=== PATIENT | male | born 2000 | race Caucasian/White ===

== ENCOUNTER 2023-08-20 15:41 | Emergency (ER) | payer OTHER, SELFPAY ==
[2023-08-20 15:50] VITALS: BP 129/76; PULSE 100; RESP 14; TEMP 36.6; O2SAT 100
--- NOTE | 2023-08-20 17:29 | ED.GENADULT ---
HPI - General Adult General Chief complaint: Skin/Abscess/Foreign Body Stated complaint: toe infection Time Seen by Provider: 08/20/23 17:04 Source: patient Mode of arrival: ambulatory Limitations: no limitations History of Present Illness HPI narrative: This is a 23-year-old male who presents to the ED for chief complaint of left great toe pain for the past week. Patient reports that he noticed this week he some skin growing over the toenail and over the past several days it is become more red, swollen and painful. Reports remote history of injuries to the toe but nothing recent. Reports some drainage from the nail. 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 States he has to walk on the side of his foot.. Denies fevers, chills, nausea, vomiting, numbness, weakness Related Data Allergies Allergy/AdvReac Type Severity Reaction Status Date / Time No Known Allergies Allergy Verified 08/20/23 17:24 Review of Systems Review of Systems: All systems as dictated in HPI Exam Narrative: GENERAL: Well-appearing, well-nourished, and in no acute distress. HEAD: Normocephalic, atraumatic. EYES: PERRLA and EOMI. ENT: Nares clear, no rhinorrhea or epistaxis. Mucous membranes moist. Oropharynx without tonsillar hypertrophy exudate or other lesions. NECK: Supple. No adenopathy or masses. CHEST: No respiratory distress. Clear to auscultation. No wheezes rales or rhonchi HEART: Regular rate and rhythm. No murmur heard. Normal peripheral pulses. ABDOMEN: Soft, nontender, nondistended, normal active bowel sounds. MSK: Normal range of motion. No edema. SKIN: Erythema, swelling to the left great toe distally. Cap refill intact. Moderate tenderness. Slight drainage from the nail fold. NEURO: Alert and oriented x3. No focal deficits. PSYCH: Normal mood and affect. Course Vital Signs Vital signs: Vital Signs Temperature 97.9 F 08/20/23 15:50 Pulse Rate 100 08/20/23 15:50 Respiratory Rate 14 08/20/23 15:50 Blood Pressure 129/76 08/20/23 15:50 Pulse Oximetry 100 08/20/23 15:50 Oxygen Delivery Room Air 08/20/23 15:50 Temperature 97.9 F 08/20/23 15:50 Pulse Rate 100 08/20/23 15:50 Respiratory Rate 14 08/20/23 15:50 Blood Pressure 129/76 08/20/23 15:50 Pulse Oximetry 100 08/20/23 15:50 Oxygen Delivery Room Air 08/20/23 15:50 Medical Decision Making MDM Narrative Medical decision making narrative: This is a 23 year old male who presents to the ED with chief complaint of left great toe pain and swelling for the past week. Vitals are normal. Exam shows mild erythema and swelling to the distal left great toe. There is some prelim drainage from the nail fold. Exam consistent with ingrown toenail and potential paronychia. Was able to gently express the fluid after lightly the layers with a 18 gauge needle. Patient will be discharged in stable condition. He has a podiatry appointment set up. Antibiotics given. Pt will be discharged in stable condition. Return precautions given and supportive measures discussed. Pt is understanding and agreeable with plan for discharge and follow-up with PCP/podiatry Vital Signs Vital Signs: Vital Signs Temperature 97.9 F 08/20/23 15:50 Pulse Rate 100 08/20/23 15:50 Respiratory Rate 14 08/20/23 15:50 Blood Pressure 129/76 08/20/23 15:50 Pulse Oximetry 100 08/20/23 15:50 Oxygen Delivery Room Air 08/20/23 15:50 Temperature 97.9 F 08/20/23 15:50 Pulse Rate 100 08/20/23 15:50 Respiratory Rate 14 08/20/23 15:50 Blood Pressure 129/76 08/20/23 15:50 Pulse Oximetry 100 08/20/23 15:50 Oxygen Delivery Room Air 08/20/23 15:50 Discharge Plan Discharge Clinical Impression: Pain of left great toe Patient Disposition: Home, Self-Care Condition: Stable Instructions: Antibiotic Form Additional Instructions: Your exam today shows evidence of possible infected
== END 2023-08-20 18:12 | disposition home or self-care (01) ==
PROVIDERS: Emergency Provider Physician Assistant
DX: M79.675 Pain in left toe(s) (principal)
CPT/HCPCS: 99283

== ENCOUNTER 2024-01-29 12:21 | Emergency (ER) | payer OTHER, SELFPAY ==
--- NOTE | ~2024-01-29 | CT_ITS ---
CT diagnostic chest w con Ordering provider: Hubert Farley MD History: 23 years Male with . Pneumonia, AV malformation . Comparison: None. Technique: CT chest with IV contrast. Radiation reduction technique utilized. The dose-length product was 154.94 mGy-cm. 75 mL Omnipaque 350 was given IV. Findings: VISUALIZED THORACIC INLET: Normal. MEDIASTINUM: Aorta/coronary arteries: Normal aorta. Heart/other: The heart is not enlarged. Lymph nodes: No mediastinal adenopathy. Small right hilar lymph nodes measuring 1.1 and 1.1 cm. LUNGS: Focal area of consolidation seen in the right lower lobe. Follow-up to resolution is advised t o exclude underlying mass. No pulmonary nodules or masses. No effusion or pneumothorax. VISUALIZED UPPER ABDOMEN: Tiny left adrenal adenoma measuring 7 mm is seen. Otherwise, the visualized upper abdomen is normal. MUSCULOSKELETAL: Soft tissues: The superficial soft tissues are normal. Bones: Normal spine. IMPRESSION: Right lower lobe pneumonia suggestive of round pneumonia. Follow-up to resolution advised. Small right hilar lymph nodes. Small left adrenal adenoma. No follow-up needed unless clinically warranted. Reviewed, dictated and finalized at location A. IMPRESSION: Right lower lobe pneumonia suggestive of round pneumonia. Follow-up to resoluti on advised. Small right hilar lymph nodes. Small left adrenal adenoma. No follow-up needed unless clinically warranted.
--- NOTE | ~2024-01-29 | CT_ITS ---
CT thoracic lumbar wo con Ordering provider: Hubert Farley MD History: . back pain . Comparison: None. Technique: CT thoracic and lumbar spine without contrast. Automated exposure control and iterative r econstruction technique were employed. The dose-length product was 484.75 mGy-cm. FINDINGS: VERTEBRAE: Normal height and alignment. No subluxation or visible acute fracture. DISC SPACES: Well maintained. intrathecal contrast. No significant stenosis as visualized. Biliary Mild disc bulge at the level of L3-L4. And L4-L5. PARASPINOUS SOFT TISSUES: Normal. A mass or focal pneumonia seen in the right lower lobe. IMPRESSION: No acute osseous abnormality of the thoracic spine. Very mild disc bulges at the levels of L3-L4 and L4-L5. Focal pneumonia or a mass in the right lower lobe. Arteriovenous malformation should be considered. F urther evaluation advised. Reviewed, dictated and finalized at location A. IMPRESSION: No acute osseous abnormality of the thoracic spine. Very mild disc bulges at the levels of L3-L4 and L4-L5. Focal pneumonia or a mass in the right lower lobe. Arteriovenous malformation s hould be considered. Further evaluation advised.
--- NOTE | ~2024-01-29 | CT_ITS ---
CT brain wo con Ordering provider: Hubert Farley MD History: 23 years Male with . fever, leg weakness . Comparison: None. Technique: CT of the head without contrast. FINDINGS: BRAIN PARENCHYMA AND CSF SPACES: There is calcification in the bilateral basal ganglia and thalami. N o midline shift, mass effect or hemorrhage. The brain parenchyma and CSF spaces are otherwise normal . VISUALIZED PARANASAL SINUSES: Right sphenoid sinus disease. MASTOIDS: Well aerated. BONES: The bones appear intact. SOFT TISSUES: Visualized nasopharynx is normal. Superficial soft tissues are normal. IMPRESSION: No acute intracranial findings. 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 Clinical correlation advised. Reviewed, dictated and finalized at location A.
[2024-01-29 12:27] VITALS: BP 140/95; PULSE 95; RESP 18; TEMP 38.6; O2SAT 98
--- NOTE | 2024-01-29 12:41 | ED.GENADULT ---
HPI - General Adult General Chief complaint: Back Pain/Injury Stated complaint: back pain Time Seen by Provider: 01/29/24 12:26 History of Present Illness HPI narrative: 23-year-old male presents emergency department for evaluation for fever and low back pain. Patient states yesterday he started developing some low back pain along with cough and fever. Patient describes rigors last night. Patient states he woke up this morning and felt improved otherwise workup began having back pain and leg pain again. Patient reports intermittent pain in the right leg. Patient denies any change in bowel or bladder habits. Related Data Allergies Allergy/AdvReac Type Severity Reaction Status Date / Time No Known Allergies Allergy Verified 01/29/24 12:46 Review of Systems Review of Systems: All systems reviewed & are unremarkable except as noted in HPI and below Exam Narrative: APPEARANCE: Well appearing, no pain, no distress, well-nourished. HEAD: normocephalic, atraumatic. EYES: PERRLA/EOMI, conjunctivae clear. NOSE: Normal no drainage NECK: Supple. No adenopathy, no masses. RESPIRATORY: Airway patent, respirations nonlabored. Clear to auscultation bilaterally, no rales, rhonchi, wheezing. CARDIOVASCULAR: Regular rate and rhythm without murmurs rubs or gallops. ABDOMINAL: Soft, nontender, nondistended, normal bowel sounds MUSCULOSKELETAL: No meningeal signs NEURO: Alert. Cranial nerves II through XII intact. Normal strength reflexes, normal single leg stand bilaterally, normal Romberg and normal for her backward tandem gait. SKIN: Warm, dry. Normal Color Course Course Emergency Course: CT showed evidence of pneumonia, patient was treated with Augmentin and azithromycin the emergency department discharged home on the same. Vital Signs Vital signs: Vital Signs Temperature 101.5 F H 01/29/24 12:27 Pulse Rate 95 01/29/24 12:27 Respiratory Rate 18 01/29/24 12:27 Blood Pressure 140/95 H 01/29/24 12:27 Pulse Oximetry 98 01/29/24 12:27 Oxygen Delivery Room Air 01/29/24 12:27 Temperature 98.8 F 01/29/24 15:19 Pulse Rate 81 01/29/24 15:19 Respiratory Rate 18 01/29/24 15:19 Blood Pressure 116/64 01/29/24 15:19 Pulse Oximetry 99 01/29/24 15:19 Oxygen Delivery Room Air 01/29/24 12:27 Medical Decision Making MDM Narrative Medical decision making narrative: 23-year-old male presents emergency department for evaluation of fever and back pain. Patient does have a low-grade fever and a leukocytosis of 10.1 and a stable hemoglobin 15.7. No acute abnormalities on his CMP patient was negative for influenza RSV and for COVID. UA was negative for infection. CT did show calcifications with no acute intracranial abnormality. No acute findings on CT lumbar or thoracic spine. Chest CT did show a round pneumonia and patient was started on antibiotics in the emergency department. I believe this is the etiology for the patient's fever and back pain. Patient was started on Augmentin azithromycin in the emergency department and discharged home months of the medications. Patient was updated on the results of the workup. All questions concerns were addressed. Differential Diagnosis Differential Diagnosis: Acute intracranial abnormality, meningitis, diskitis, osteomyelitis, pneumonia, influenza, COVID, RSV Vital Signs Vital Signs: Vital Signs Temperature 101.5 F H 01/29/24 12:27 Pulse Rate 95 01/29/24 12:27 Respiratory Rate 18 01/29/24 12:27 Blood Pressure 140/95 H 01/29/24 12:27 Pulse Oximetry 98 01/29/24 12:27 Oxygen Delivery Room Air 01/29/24 12:27 Temperature 98.8 F 01/29/24 15:19 Pulse Rate 81 01/29/24 15:19 Respiratory Rate 18 01/29/24 15:19 Blood Pressure 116/64 01/29/24 15:19 Pulse Oximetry 99 01/29/24 15:19 Oxygen Delivery Room Air 01/29/24 12:27 Lab Data Lab results reviewed: Yes I reviewed the patient's lab results. 01/29/24 12:47
[2024-01-29 12:53] LABS: Basophils Absolute Auto 0.1 K/mm3 (0.0-0.1); Basophils Percent Auto 0.7 % (0.2-1.2); Eosinophils Absolute Auto 0.1 K/mm3 (0-0.3); Eosinophils Percent Auto 0.7 % (0-4.4); Hematocrit 45.5 % (42.0-52.0); Hemoglobin 15.7 g/dL (14.0-18.0); Immature Granulocyte Absolute 0.02 K/mm3 (0.00-0.031); Immature Granulocyte Percent A 0.2 % (0-0.5); Lymphocytes Percent Auto 10.9 % (18.3-44.2); Mean Corpuscular HGB Conc 34.5 g/dl (32-36); Mean Corpuscular Hemoglobin 31.2 pg (26-34); Mean Corpuscular Volume 90.5 fl (80-100); Monocytes Absolute Auto 1.1 K/mm3 (0.1-0.6); Monocytes Percent Auto 11.1 % (2.6-8.5); Neutrophils Absolute Auto 7.7 K/mm3 (1.3-6.7); Neutrophils Percent Auto 76.4 % (45.5-73.1); Platelet Count Result 293 k/mm3 (150-375); Red Blood Count 5.03 M/mm3 (4.6-6.20); Red Cell Distribution Width 12.7 % (11.5-14.5); White Blood Count 10.1 K/mm3 (4.5-10.0)
--- NOTE | 2024-01-29 12:59 | PC.NURSE ---
patient to cat scan
[2024-01-29 13:06] LABS: Alanine Aminotransferase 11 U/L (6-50); Albumin Level 4.7 g/dL (3.5-5.1); Alkaline Phosphatase 84 U/L (38-126); Anion Gap 10 mmol/L (4-12); Aspartate Amino Transferase 22 U/L (17-59); Bilirubin,Total 0.6 mg/dL (0.2-1.3); Blood Urea Nitrogen 12 mg/dL (9-20); Calcium 8.9 mg/dL (8.4-10.2); Carbon Dioxide 29 mmol/L (22-30); Chloride 98 mmol/L (98-107); Estimated CRCL calculation 104 ml/min; Estimated Glomerular Filt Rate > 60; Glucose 94 mg/dL (65-110); Sodium 137 mmol/L (137-145)
[2024-01-29 13:11] LABS: Prothrombin Time 14.1 Seconds (11.1-14.7)
[2024-01-29 13:13] LABS: Partial Thromboplastin Time 30.7 Seconds (22.3-36.8)
[2024-01-29] MEDS: ACETAMINOPHEN 500 MG TABLET 1000 MG PO (13:16)
[2024-01-29 13:38] LABS: Influenza A QL RT-PCR Negative (Negative); Influenza B QL RT-PCR Negative (Negative); RSV RNA, RT-PCR Negative (Negative); SARS-CoV-2 RNA PCR Negative (Negative)
[2024-01-29 13:58] LABS: Appearance Urine Clear (Clear); Bacteria Urine None Seen /hpf; Bilirubin Urine Negative (Negative); Blood Urine Negative (Negative); Color Urine Yellow (Yellow); Glucose Urine UA Negative (Negative); Ketones Urine Negative (Negative); Leukocyte Esterase Ur Negative LEU/UL (Negative); Nitrate Urine Negative (Negative); Non Pathogenic Casts 0-2; Protein Urine Trace mg/dL (Negative); RBC Urine 0-2 /hpf (0-2); Specific Grav Ur 1.017 (1.001-1.035); Squamous Epithelial Cell Urine None Seen /hpf (Few); WBC Urine 0-5 /hpf (0-3)
[2024-01-29 13:59] LABS: Add Urine Microscopic? YES
[2024-01-29 15:19] VITALS: BP 116/64; PULSE 81; RESP 18; TEMP 37.1; O2SAT 99
[2024-01-29] MEDS: AMOXICILLIN/CLAVULANATE K 875-125 MG TAB 1 TABLET PO (15:20)
[2024-01-29] MEDS: AZITHROMYCIN 250 MG TABLET 500 MG PO (15:20)
== END 2024-01-29 15:30 | disposition home or self-care (01) ==
PROVIDERS: Emergency Provider Emergency Medicine
DX: J18.9 Pneumonia, unspecified organism (principal); Z20.822 Contact with and (suspected) exposure to COVID-19
CPT/HCPCS: 36415; 70450; 71260; 72128; 72131; 80053; 81001; 85025; 85610; 85730; 87637; 99284; A9270; Q9967

== ENCOUNTER 2024-05-24 19:42 | Emergency (ER) | payer OTHER, SELFPAY ==
--- NOTE | 2024-05-24 19:44 | ED.WOUNDLAC ---
HPI - Wound/Laceration General Chief Complaint: Wound/Laceration Stated Complaint: wound laceration Time Seen by Provider: 05/24/24 19:51 Source: patient, RN notes reviewed and old records reviewed Mode of arrival: ambulatory Limitations: no limitations History of Present Illness HPI narrative: 23-year-old male presents to the [facility] with a laceration to the 2nd finger right hand that occurred approximately 1 hour prior to arrival. States that he cut it on a pocket knife. unknown last Tdap Related Data Home Medications Medication Instructions Recorded Confirmed No Home Medications 05/24/24 05/24/24 Allergies Allergy/AdvReac Type Severity Reaction Status Date / Time No Known Allergies Allergy Verified 05/24/24 20:31 Review of Systems Review of Systems: All systems reviewed & are unremarkable except as noted in HPI and below Constitutional: Constitutional: Reports no additional constitutional complaints ENT: Reports system reviewed and no additional complaints, except as documented Cardiovascular: Cardiovascular: Reports no additional cardiovascular complaints, Denies chest pain and Denies dyspnea Respiratory: Respiratory: Reports no additional respiratory complaints, Denies chest congestion, Denies cough and Denies dyspnea Gastrointestinal: Gastrointestinal: Reports no additional gastrointestinal complaints, Denies abdominal pain, Denies nausea and Denies vomiting Musculoskeletal: Musculoskeletal: Reports no additional musculoskeletal complaints Integumentary/Breasts: Skin/Breast: Reports as per HPI PMFSH Comments At the time of my signature, I reviewed and agree with the nursing past medical, surgical, social, and family history. There is no relevant family history pertinent to the patient complaint. Exam Const: General: cooperative, healthy appearing, comfortable, no acute distress, well developed, alert and well nourished Nutritional Appearance: well nourished Orientation/consciousness: patient oriented x3 Limitations: no limitations HENMT: Head: normal to inspection Ears: hearing grossly normal bilaterally and external ears normal Face/Nose/Sinus: Normal external nose present, normal facial exam and face symmetric Face and sinus: normal facial exam and face symmetric Eyes: General: appearance normal, both eyes and all related structures Alignment and Position: alignment normal Periorbital: periorbital findings normal Neck: Neck: normal visual inspection, full ROM, no lymphadenopathy and no meningeal signs Chest: Chest palpation & inspection: normal inspection of the chest Resp: Effort & Inspection: normal respiratory effort and able to speak in complete sentences Cardio: Rate: regular rate Skin: General skin exam: normal color and no rashes or lesions noted Lesions: no lesions Rashes: no rashes Other: 2.5 cm wound 2nd finger right hand. Has full range of motion. Capillary refill under 2 seconds and sensation intact Neuro: General: patient oriented x3, gait normal, tone normal, moves all extremities and no meningeal signs Cognition (Neuro): normal cognition Speech: normal speech Gait exam (Neuro): Normal gait present Extrem: General: normal to inspection, full ROM, capillary refill normal and normal gait Psych: Appearance: grossly normal and well kempt Mental Status: mental status grossly normal Speech and movement: Normal speech and movement present and Clear speech present Affect: normal affect Attitude: cooperative Course Course Level of Care: Express Care Visit Vital Signs Vital signs: Vital Signs Temperature 97.3 F L 05/24/24 19:47 Pulse Rate 86 05/24/24 19:47 Respiratory Rate 15 05/24/24 19:47 Blood Pressure 115/68 05/24/24 19:47 Pulse Oximetry 100 05/24/24 19:47 Oxygen Delivery Room Air 05/24/24 19:47 Temperature 97.3 F L 05/24/24 20:31 Pulse Rate 86 05/24/24 20:31 Respiratory Rate 15 05/24/24 20:31 Blood Pressure 115/68 05/24/24 20:31 Pulse Oximetry 100 05/24/24 20:31 Oxygen Delivery Room Air 05/24/24 20:31 Reviewed Procedures Laceration Laceration 1: Date: 05/24/24 Time: 20:00 Site: hand (2nd finger) Side (If applicable): right Size (cm): 2.5 Description: linear, flap and clean Depth: simple, single layer ====== Skin Level ====== Skin layer closed with: nylon Size (cm): 5-0 Number of sutures: 3 Technique: simple, interrupted ====== Subcutaneous Layer ====== ====== Muscle Layer ====== ====== Tendon Layer ====== Dressing: Procedure explained to patient. Verbal consent obtained. Irrigated with 200 mils of saline. Digital block performed after cleaning area with Betadine. Three sutures placed. Patient tolerated well. Finger splint placed MDM - Wound/Laceration MDM Narrative Medical decision making narrative: Patient sitting comfortably in exam room. Nontoxic, vitals stable. Patient presents for a laceration to the 2nd finger right hand. Updated tetanus, laceration repaired. Patient appropriate for outpatient treatment and follow-up Discharge instructions reviewed with patient, as well as provided in writing per nursing staff. The instructions also include specific and strict return/GO TO THE ER as well as f/u information. All questions have been answered, and the patient deny any further questions with discharge and discharge plan. Some parts of this dictation were generated by voice recognition software and may contain typographical and/or grammatical inaccuracies. Differential Diagnosis Differential diagnosis: Likely laceration, abrasion and avulsion of skin Critical Care Time Critical Care Time Critical Care Time: No Discharge Plan Discharge Clinical Impression: Finger laceration, Vaccine for [id number], combined Patient Disposition: Home, Self-Care Condition: Stable Instructions: Antibiotic Form, Finger Laceration (ED) Additional Instructions: wash area twice daily with warm soapy water, pat dry P when not at home keep it covered. When at home try leaving open to air for minimum of 3-4 hours every day wear the splint for comfort rest, ice and elevate every 2-3 hours for 15-20 minutes while awake Take Tylenol every 6-8 hours as needed for pain If you are having a hard time finding a physician please call our [facility] liaison at [phone]. follow-up in 10-14 days for suture removal. For new or worsening symptoms go directly to the emergency room Patient Language: Telugu Prescriptions: No Action No Home Medications Follow-up/Referrals: PHYSICIAN,INVESTMENT OFFICER [Primary Care Provider] - Time of Disposition: 20:21
[2024-05-24 19:47] VITALS: BP 115/68; PULSE 86; RESP 15; TEMP 36.3; O2SAT 100
[2024-05-24] MEDS: LIDOCAINE HCL 1% LOCAL INJ 2 ML AMPUL 4 ML INFILTRATE (20:02)
[2024-05-24] MEDS: TETANUS,DIPHTHERIA,AC PERTUSSIS ADULT (0.5 ML) BOOSTRIX IM (20:02)
[2024-05-24 20:31] VITALS: BP 115/68; PULSE 86; RESP 15; TEMP 36.3; O2SAT 100
== END 2024-05-24 20:27 | disposition home or self-care (01) ==
PROVIDERS: Emergency Provider Nurse Practitioner; Referring Provider Emergency Medicine
DX: S61.210A Laceration without foreign body of right index finger without damage to nail, initial encounter (principal); Z23 Encounter for immunization; W26.0XXA Contact with knife, initial encounter
CPT/HCPCS: 12001; 90471; 90715; 99212; G0463; J2003

== ENCOUNTER 2024-06-29 13:17 | Emergency (ER) | payer OTHER, SELFPAY ==
[2024-06-29 13:46] VITALS: BP 112/64; PULSE 83; RESP 18; TEMP 36.7; O2SAT 100
--- NOTE | 2024-06-29 14:24 | ED.URI ---
HPI - URI/Sore Throat General Chief Complaint: Upper Respiratory Infection Stated Complaint: Sore Throat/Bodyaches Time Seen by Provider: 06/29/24 14:24 Source: patient, RN notes reviewed and old records reviewed Mode of arrival: ambulatory Limitations: no limitations History of Present Illness HPI Narrative: 24-year-old male presents to the [facility] with complaints of a sore throat, headache, body ache since yesterday. Has taken and a dose of Mucinex. Onset (ago): day(s) (1) Related Data Home Medications ?Medication ?Instructions ?Recorded ?Confirmed ?Last Taken ?Type No Home Medications 05/24/24 06/29/24 Unknown History Allergies Allergy/AdvReac Type Severity Reaction Status Date / Time No Known Allergies Allergy Verified 06/29/24 14:12 Review of Systems Review of Systems: All systems reviewed & are unremarkable except as noted in HPI and below Constitutional: Constitutional: Reports as per HPI, Reports body ache(s) and Reports headache(s) ENT: Reports as per HPI and Reports sore throat Cardiovascular: Cardiovascular: Reports no additional cardiovascular complaints, Denies chest pain and Denies dyspnea Respiratory: Respiratory: Reports no additional respiratory complaints, Denies chest congestion, Denies cough and Denies dyspnea Musculoskeletal: Musculoskeletal: Reports no additional musculoskeletal complaints Integumentary/Breasts: Skin/Breast: Reports system reviewed and no additional complaints, except as docu PMFSH Comments At the time of my signature, I reviewed and agree with the nursing past medical, surgical, social, and family history. There is no relevant family history pertinent to the patient complaint. Exam Const: General: cooperative, healthy appearing, comfortable, no acute distress, well developed, alert and well nourished Nutritional Appearance: well nourished Orientation/consciousness: patient oriented x3 Limitations: no limitations HENMT: Head: normal to inspection Ears: hearing grossly normal bilaterally, external ears normal, EAC's normal, mastoids normal and no periauricular adenopathy Mouth: Yes Normal oral and palatal mucosa present, Yes lip normal, Yes tongue normal and Yes moist mucous membranes Throat: posterior oropharynx normal, uvula midline, postnasal drainage and no uvular edema Eyes: General: appearance normal, both eyes and all related structures Alignment and Position: alignment normal Neck: Neck: normal visual inspection, full ROM, no lymphadenopathy and no meningeal signs Chest: Chest palpation & inspection: normal inspection of the chest Resp: Effort & Inspection: normal respiratory effort and able to speak in complete sentences Auscultation: clear to auscultation bilaterally, no crackles, no rales, no rhonchi and no wheezes Cardio: Rate: regular rate Skin: General skin exam: normal color and no rashes or lesions noted Neuro: General: patient oriented x3, gait normal, moves all extremities and no meningeal signs Cognition (Neuro): normal cognition Speech: normal speech Gait exam (Neuro): Normal gait present Extrem: General: normal to inspection, full ROM, capillary refill normal and normal gait Psych: Appearance: grossly normal and well kempt Mental Status: mental status grossly normal Speech and movement: Normal speech and movement present and Clear speech present Affect: normal affect Attitude: cooperative Course Course Level of Care: Express Care Visit Vital Signs Vital signs: Vital Signs Temperature 98.1 F 06/29/24 13:46 Pulse Rate 83 06/29/24 13:46 Respiratory Rate 18 06/29/24 13:46 Blood Pressure 112/64 06/29/24 13:46 Pulse Oximetry 100 06/29/24 13:46 Oxygen Delivery Room Air 06/29/24 13:46 Temperature 98.1 F 06/29/24 13:46 Pulse Rate 83 06/29/24 13:46 Respiratory Rate 18 06/29/24 13:46 Blood Pressure 112/64 06/29/24 13:46 Pulse Oximetry 100 06/29/24 13:46 Oxygen Delivery Room Air 06/29/24 13:46 Reviewed MDM - URI/Sore Throat MDM Narrative Medical decision making narrative: Patient sitting in exam room. Nontoxic, vitals stable. Patient in no acute distress. Patient presents with 1 day history of sore throat, headache, body aches. Patient's flu COVID and strep were all negative in clinic. Patient appropriate for outpatient treatment of viral URI Discharge instructions reviewed with patient, as well as provided in writing per nursing staff. The instructions also include specific and strict return/GO TO THE ER as well as f/u information. All questions have been answered, and the patient deny any further questions with discharge and discharge plan. Some parts of this dictation were generated by voice recognition software and may contain typographical and/or grammatical inaccuracies. Differential Diagnosis Differential diagnosis: Likely upper respiratory infection, otitis media, sinusitis, viral infection, bronchitis, influenza and pharyngitis Lab Data Labs: Lab Results 06/29/24 06/29/24 Range/Units 14:32 14:33 POC Influenza A Ag Negative (Negative) POC Influenza B Ag Negative (Negative) POC SARS CoV-2 Ag Negative (Negative) POC Grp A Strep Screen Negative (Negative) Reviewed Critical Care Time Critical Care Time Critical Care Time: No Discharge Plan Discharge Clinical Impression: Upper respiratory infection, Post-nasal drainage Patient Disposition: Home, Self-Care Condition: Stable Instructions: Antibiotic Form, Upper Respiratory Infection (ED), Postnasal Drip (DC) Additional Instructions: Your rapid strep swab was negative today at [facility]. A throat culture will be sent to the laboratory for further testing. If the test is positive, you will receive a phone call within 48 hours and an appropriate antibiotic will be initiated at that time. Your rapid COVID test were negative Your rapid flu test was negative Your symptoms are likely due to a viral illness, which is not treated with antibiotics. Typically viral infections last 7-10 days, can linger for couple of weeks. It is very important to treat your symptoms. Drink plenty of water, Gatorade, Pedialyte, ice pops or Jell-O. -Alternate Tylenol and Motrin per package directions for fever or pain. You can alternate every 4 hours -Antihistamine medication such as Zyrtec/Claritin/Krista during the day can help improve symptoms. -doing daily nasal irrigations can help relieve pressure your sinuses. Things like a Neti pot -Use Flonase twice a day for 5 days then daily to help reduce the inflammation and dry up your sinuses. -You can also use Mucinex. Be sure to drink plenty of water with this medication at least 8 ounces with every dose and it is important to drink 8 to 10 glasses of water per day. Water is a natural decongestant -Eat and drink things that are easy to swallow, like tea or soup, or popsicles. -Oral rinses such as: Salt water gargles and/or may use topical anesthetic (eg. Chloraseptic spray) or lozenges to relieve dryness or throat pain). -Frequent hand washing or hand philosophy lecturer is one of the best ways to prevent spread of infection. -Using a vaporizer or humidifier at night will also help thin secretions and help with coughing up phlegm. -Follow up with primary care provider in 7-10 days if condition is not improving - For new or worsening symptoms go directly to the nearest ER Patient Language: Citizen Of [place] Prescriptions: No Action No Home Medications Follow-up/Referrals: PHYSICIAN,GENDER STUDIES PROFESSOR [Primary Care Provider] - Stand Alone Forms: Work/School Release IP Time of Disposition: 14:29
[2024-06-29 14:35] LABS: EDINFLUASCREEN Negative (Negative); EDINFLUBSCREEN Negative (Negative); EDSTREPNEGPOS1 Negative (Negative)
[2024-06-29 14:35] LABS: EDCOVIDSCREEN Negative (Negative)
== END 2024-06-29 14:33 | disposition home or self-care (01) ==
PROVIDERS: Emergency Provider Nurse Practitioner
DX: J06.9 Acute upper respiratory infection, unspecified (principal); R09.82 Postnasal drip; Z20.822 Contact with and (suspected) exposure to COVID-19
CPT/HCPCS: 87081; 87426; 87804; 87880; 99213; G0463